=== PATIENT | male | born 1960 | race Caucasian/White ===

== ENCOUNTER 2016-07-14 16:10 | Emergency (ER) | payer BC ==
[2016-07-14 16:41] VITALS: BP 145/81
[2016-07-14] MEDS ORDERED: FLUTICASONE 50MCG/NASAL SPRAY 16GM BOTTLE. NS STA (16:59)
[2016-07-14] MEDS ORDERED: BENZONATATE 100 MG CAPSULE. PO ONE (17:00)
[2016-07-14] MEDS ORDERED: PREDNISONE 20 MG TABLET PO ONE (17:00)
[2016-07-14] MEDS ORDERED: IPRATRPIUM/ALBUTEROL 0.5/2.5MG 3 ML NEBU. NEB ONE (17:00)
--- NOTE | 2016-07-14 17:06 | PHYS DOC ---
Past Medical History Past Medical History: No Pertinent History Past Surgical History: Other Additional Past Surgical Histo: RIGHT ARM SCREWS REMOVED,LEFT LEG WITH SCREWS, LEFT THUMB WITH SCREW, Alcohol Use: Rarely Drug Use: Marijuana Adult General Chief Complaint Chief Complaint: COUGH HPI HPI Patient is a 56 year old male with no significant medical history who presents today with a productive cough with green sputum for the last 3 weeks. Patient's also complaining of chills and body aches. Patient states he tried calling his PCP who sent him to the ED for chest x-ray. Patient denies any personal history of smoking but states the smokes around him. Review of Systems Review of Systems Constitutional: see HPI Eyes: Denies change in visual acuity, redness, or eye pain [] HENT: nasal congestion Respiratory: cough Cardiovascular: No additional information not addressed in HPI [] GI: Denies abdominal pain, nausea, vomiting, bloody stools or diarrhea [] : Denies dysuria or hematuria [] Musculoskeletal: Denies back pain or joint pain [] Integument: Denies rash or skin lesions [] Neurologic: Denies headache, focal weakness or sensory changes [] Endocrine: Denies polyuria or polydipsia [] Current Medications Current Medications Current Medications Medications (Trade) Dose Ordered Sig/Lenin Start Time Stop Time Status Last Admin Dose Admin Albuterol/ Ipratropium (Duoneb) 3 ml 1X ONCE 07/14/16 17:00 07/14/16 17:03 DC 07/14/16 17:28 3 ML Benzonatate (Tessalon Perle) 200 mg 1X ONCE 07/14/16 17:00 07/14/16 17:03 DC 07/14/16 17:18 200 MG Fluticasone Propionate (Flonase) 2 spray 1X STAT 07/14/16 16:59 07/14/16 17:04 DC 07/14/16 17:18 2 SPRAY Prednisone (Prednisone) 60 mg 1X ONCE 07/14/16 17:00 07/14/16 17:03 DC 07/14/16 17:18 60 MG Allergies Allergies Allergies Coded Allergies Type Severity Reaction Last Updated Verified morphine Allergy Intermediate SICK, 07/14/16 Yes Physical Exam Physical Exam Constitutional: Well developed, well nourished, no acute distress, non-toxic appearance. [] HENT: Normocephalic, atraumatic, bilateral external ears normal, oropharynx moist, no oral exudates, nose normal. [] Eyes: PERRLA, EOMI, conjunctiva normal, no discharge. [] Neck: Normal range of motion, no tenderness, supple, no stridor. [] Cardiovascular:Heart rate regular rhythm, no murmur [] Lungs & Thorax: Diminished breath sounds to posterior lower lung bases, no wheezing. No rhonchi. Abdomen: Bowel sounds normal, soft, no tenderness, no masses, no pulsatile masses. [] Skin: Warm, dry, no erythema, no rash. [] Back: No tenderness, no CVA tenderness. [] Extremities: No tenderness, no cyanosis, no clubbing, ROM intact, no edema. [] Neurologic: Alert and oriented X 3, normal motor function, normal sensory function, no focal deficits noted. [] Psychologic: Affect normal, judgement normal, mood normal. [] Current Patient Data Vital Signs Vital Signs Date Time Temp Pulse Resp B/P Pulse Ox O2 Delivery O2 Flow Rate FiO2 07/14/16 17:29 98 Room Air 07/14/16 16:41 98.0 102 22 98.0 EKG EKG [] Radiology/Procedures Radiology/Procedures [] Course & Med Decision Making Course & Med Decision Making Pertinent Labs and Imaging studies reviewed. (See chart for details) Patient is in the ED with a cough for 3 weeks. He has no history of smoking but is exposed to secondhand smoking. I advised patient to talk to the to consider smoking cessation encouraged her if she has to smoke she has to do it outside. Chest x-ray interpreted by Dr. Newby is negative for any acute findings. Patient was actively coughing on arrival to the ED. He was given a DuoNeb treatment prednisone and Flonase and Tessalon Perles. His coughing has actually stopped. He probably has bronchitis but considering his age of 56 and the length of illness we will put him on the Zpack. We also sent him home with some cough medicine prednisone and the Flonase. He is to follow-up with his own PCP in the next 7 days. He was provided return precautions and discharged in stable condition. Dragon Disclaimer Dragon Disclaimer This electronic medical record was generated, in whole or in part, using a voice recognition dictation system. Departure Departure Impression: Primary Impression: Secondhand smoke exposure Additional Impression: Acute bronchitis Disposition: HOME, SELF-CARE Condition: STABLE Referrals: OSCAR MCCRARY MD (PCP) See your doctor in one week Patient Instructions: Acute Bronchitis Additional Instructions: You were seen for acute bronchitis. Please complete your antibiotics. Use the prescribed medicines as ordered. Encouraged your to consider not smoking cessation or smoke outside. Come back to the ED if symptoms worsen otherwise follow-up with your doctor in one week Scripts Promethazine Hcl/Codeine (Promethazine-Codeine Syrup)118 Ml Syrup5 Ml PO Q4- 6HRS #100 ML Prov:SOFI FRANKS APRN 07/14/16 Azithromycin (Zithromax)250 Mg Tablet1 Pkg PO UD #1 PKG Prov:SOFI FRANKS APRN 07/14/16 Benzonatate (Tessalon Perle)100 Mg Capsule1 Cap PO TID #30 CAP Prov:SOFI FRANKS APRN 07/14/16 Albuterol Sulfate (Proair Respiclick)90 Mcg Aer.pow.ba1 Puff IH PRN Q6HRS PRN SHORTNESS OF BREATH #1 INHALER Prov:SOFI FRANKS APRN 07/14/16 Prednisone 50 Mg Tablet1 Tab PO DAILY #4 TAB Prov:SOFI FRANKS APRN 07/14/16 Problem Qualifiers Additional Impression: Acute bronchitis Bronchitis organism: unspecified organism Qualified Code: J20.9 - Acute bronchitis, unspecified SOFI FRANKS APRN Jul 14, 2016 17:06
[2016-07-14] MEDS ORDERED: PROAIR RESPICL90 MCG IH (18:04)
[2016-07-14] MEDS ORDERED: BENZ100C PO (18:04)
[2016-07-14] MEDS ORDERED: PRED50TA PO (18:04)
[2016-07-14] MEDS ORDERED: AZIT250T PO (18:04)
[2016-07-14] MEDS ORDERED: PROM118S2 PO (18:05)
--- NOTE | 2016-07-15 07:18 | RAD ---
Indication: Cough for 2 days. Time of exam 1651 hours. FINDINGS: The heart size is normal. The lungs are clear. No pleural effusion or pneumothorax is identified. The pulmonary vascularity is normal. IMPRESSION: No acute abnormality detected.
== END 2016-07-14 18:25 | disposition home or self-care (01) ==
LOC: ER 16:10
DX: J20.9 Acute bronchitis, unspecified (principal); F17.200 Nicotine dependence, unspecified, uncomplicated; Z87.891 Personal history of nicotine dependence; Z77.22 Contact with and (suspected) exposure to environmental tobacco smoke (acute) (chronic); Z88.5 Allergy status to narcotic agent
CPT/HCPCS: 71020; 94250; 94640; 99284; J7512; J7620

== ENCOUNTER → 2017-05-19 | Day surgery (SDC) | payer OTHER ==
[~2017-05-19] MED LIST: AZIT250T PO; BENZ100C PO; IV RINGERS,LACTATED 1000ML 1,000 ML IV SCH; LIDOCAINE 1% PF 2 ML VIAL. ID PRN; LIDOCAINE 2% PF Vial for OR 5 ML VIAL. ONE; MIDAZOLAM HCL/PF 2 MG/2 ML VIAL. IV PRN; PRED50TA PO; PROAIR RESPICL90 MCG IH; PROM118S2 PO; PROPOFOL 40 ML IV ONE; TRAM50TA PO; fentaNYL PF VIAL 100 MCG/2 ML VIAL IV PRN
[2017-05-19 10:14] VITALS: BP 116/80
--- NOTE | 2017-05-19 18:08 | HP ---
ADMIT DATE: 05/19/2017 REFERRING PHYSICIAN: Chong Ross MD. HISTORY OF PRESENT ILLNESS: A 57-year-old male with past medical history significant for hypertension, history of IA, social history, colonic polyps, status post arm, ankle and thumb surgery. He is seen for interval colonoscopy with last colonoscopy approximately 6 years ago, which did reveal polyps at that time. There is no change in bowel habits with no diarrhea or constipation, no melena and/or hematochezia. Weight and appetite are stable. Family history is positive for colon cancer for both parents. He is without additional complaints. PAST MEDICAL HISTORY: Significant for hypertension, previous IA. Arm, ankle and thumb surgery. ALLERGIES: None. MEDICATIONS: Tramadol 50 mg daily. FAMILY AND SOCIAL HISTORY: He is a drinker, not a smoker. Family history is significant for colon cancer with both parents. REVIEW OF SYSTEMS: As per records. PHYSICAL EXAMINATION: GENERAL: Reveals a well-nourished, well-developed male. VITAL SIGNS: Temperature 98.4, pulse is 80, respiratory rate is 20. HEENT: Normocephalic and atraumatic. Pupils and extraocular movements are not tested. Anicteric. NECK: Supple. LUNGS: Clear. CARDIOVASCULAR: Reveals an S1, S2 without S3, S4 or appreciable murmur. ABDOMEN: Soft abdomen, normal bowel sounds, without appreciable splenomegaly. EXTREMITIES: Reveals no cyanosis, clubbing, edema. IMPRESSION AND PLAN: History of colonic polyps and family history of colon cancer. Interval colonoscopy is warranted. Risks and benefits of procedure including risk of perforation during the operation had been discussed with the patient who is willing to proceed at this time. TERRA CORADO MD DR: ZOE/meseret JOB#: [id number] / [id number]
--- NOTE | 2017-05-22 13:33 | PATHOLOGY ---
PATHOLOGY REPORT * * * * * * * * FINAL DIAGNOSIS: Colon biopsies, transverse colon polyp: - Tubular adenoma. COMMENT: There is no high grade dysplasia or evidence of malignancy. (JPM:mml; 05/22/2017) REPORT ELECTRONICALLY SIGNED BY: Florian Richardson M.D. DATE/TIME: 05/22/2017 13:32 * * * * * * * * GROSS PATHOLOGY: Received in formalin labeled "Florian Longoria transverse colon polyp," are 3 segments of estevez soft tissue measuring 0.9 x 0.7 x 0.3 cm in aggregate dimensions and ranging from 0.4 to 0.7 cm in maximum dimension. The specimen is submitted entirely in cassette A1. (TSD; 05/19/2017) INITIAL CPT CODE(S): A; 32256 Professional services performed by [facility] [place] [address] Technical services performed by [facility] at [address] [place] [address], [place] [address]. SPECIMEN(S) RECEIVED: A.Transverse colon polyp CLINICAL HISTORY: History of colon polyp PATIENT: FLORIAN LONGORIA /AGE: 802/06/1960 (Age: 57) PATIENT #: [id number] ALT CASE #: SPECIMEN COLLECTION DATE: 05/19/2017 SPECIMEN RECEIVED DATE: 05/19/2017 [facility] - [address] [place] [address] - PHONE: [phone] * * * END OF REPORT * * *
== END | disposition home or self-care (01) ==
LOC: SURG 07:52
PROVIDERS: ATTEND Internal Medicine Gastroenterology
DX: Z09 Encounter for follow-up examination after completed treatment for conditions other than malignant neoplasm (principal); Z86.010 Personal history of colon polyps; D12.3 Benign neoplasm of transverse colon; K64.0 First degree hemorrhoids; K57.30 Diverticulosis of large intestine without perforation or abscess without bleeding; M19.90 Unspecified osteoarthritis, unspecified site; Z87.39 Personal history of other diseases of the musculoskeletal system and connective tissue; Z72.89 Other problems related to lifestyle; Z72.0 Tobacco use; Z87.891 Personal history of nicotine dependence
CPT/HCPCS: 45385; 88305; J2704; J2001

== ENCOUNTER → 2018-12-07 | Outpatient (CLI) | payer BC ==
[2017-05-19 10:14] VITALS: BP 116/80
[~2018-12-07] MED LIST changes: +CONTRAST GIVEN. MC PRN; +IOHEXOL 240 MG/ML 50ML VIAL. PO ONE; +IOHEXOL 300 MG/ML 100ML VIAL. IV ONE; -IV RINGERS,LACTATED 1000ML 1,000 ML IV SCH; -LIDOCAINE 1% PF 2 ML VIAL. ID PRN; -LIDOCAINE 2% PF Vial for OR 5 ML VIAL. ONE; -MIDAZOLAM HCL/PF 2 MG/2 ML VIAL. IV PRN; -PROM118S2 PO; +PROM118S5 PO; -PROPOFOL 40 ML IV ONE; -fentaNYL PF VIAL 100 MCG/2 ML VIAL IV PRN
--- NOTE | 2018-12-07 16:33 | RAD ---
CT ABD PELV W/ORAL IV CONTRAST Indication: Rectal bleeding, low abdominal pain, diarrhea. Exposure: One or more of the following individualized dose reduction techniques were utilized for this examination: 1. Automated exposure control 2. Adjustment of the mA and/or kV according to patient size 3. Use of iterative reconstruction technique. Technique: Intravenous contrast was given. Oral contrast was given. Comparison: None FINDINGS: Lung bases are clear. No evidence of pneumoperitoneum. Tiny low-density subcentimeter lesion of the right lobe of the liver too small to characterize but would most commonly be benign in the absence of other relevant clinical history. Spleen not enlarged. Low-density lesion at the posterior spleen measures 11 mm. This measures greater than cystic density but that could be due to its small size. Pancreas unremarkable. No evidence of adrenal mass. Kidneys demonstrate symmetric enhancement. No hydronephrosis or mass. No calcified gallstone. The aorta is nonaneurysmal. No significant lymph node enlargement. Mild wall thickening of the duodenum may just be due to lack of distention or peristalsis. No obstructive distention of the small bowel. Colonic diverticulosis. There is no evidence of acute colitis. The appendix appears normal. No evidence of pneumoperitoneum or ascites urinary bladder appears grossly unremarkable. The prostate is enlarged and indents the inferior urinary bladder. Degenerative spondylosis of the spine with a right convexity scoliosis. No evidence of bone destruction. IMPRESSION: 1. Hypodense lesion in the posterior spleen, this does not measure cystic density but may be too small for accurate characterization. Could be further characterized with nonemergent ultrasound or follow-up CT. 2. Mild duodenal wall thickening, likely due to nondistention or peristalsis. 3. Prostatomegaly. 4. Diverticulosis without evidence of acute colitis. Electronically signed by: Chong Arita MD (12/07/2018 4:30 PM) [facility]
== END | disposition home or self-care (01) ==
LOC: CT 14:09
PROVIDERS: ATTEND Internal Medicine Gastroenterology
DX: K57.30 Diverticulosis of large intestine without perforation or abscess without bleeding (principal); K31.89 Other diseases of stomach and duodenum; N40.1 Benign prostatic hyperplasia with lower urinary tract symptoms; D73.89 Other diseases of spleen; M47.816 Spondylosis without myelopathy or radiculopathy, lumbar region
CPT/HCPCS: 74177; Q9966; Q9967

== ENCOUNTER → 2019-03-13 | Outpatient (CLI) | payer BC ==
[2017-05-19 10:14] VITALS: BP 116/80
[~2019-03-13] MED LIST changes: -CONTRAST GIVEN. MC PRN; -IOHEXOL 240 MG/ML 50ML VIAL. PO ONE; -IOHEXOL 300 MG/ML 100ML VIAL. IV ONE
--- NOTE | 2019-03-13 17:22 | KCIC ---
3 view study of the left ankle Clinical indications: Chronic left ankle pain. History of trauma many years ago. FINDINGS: There is deformity of the mid shaft and distal shaft of the left fibula due to old healed fractures. Surgical screw is seen within the distal tibia involving the lateral tibial plafond. No acute-appearing fracture is evident. The mortise ankle joint is deformed including the talus with loss of joint space resulting in [id number] interface of the lateral portion of the tibial plafond articulating with the dome of the talus. 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 There is a prominent exostosis anteriorly and laterally. This is difficult to say whether this represents exuberant callus formation from healed distal tibia or talus fractures or represents a large loose body. This measures 34 mm in greatest dimension. There is a prominent loose body involving the posterior tibiotalar joint compartment measuring 22 mm. Smaller loose body of the medial malleolus is seen measuring 12 mm. Smaller loose body of the distal fibular epiphysis just lateral to the talus is seen measuring 9 mm. No flattening of Boehler's angle of the calcaneus is seen. Small plantar spur of the calcaneus is evident. There is moderate dorsal spurring of the talonavicular joint compartment. There is dorsal soft tissue swelling in this area extending towards the prominent exostosis just described. No lytic process is evident. 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 Electronically signed by: Sergio Orourke MD (03/13/2019 5:19 PM) [id number]
== END | disposition home or self-care (01) ==
LOC: KCIC 16:08
PROVIDERS: ATTEND Family Medicine Sports Medicine
DX: M19.072 Primary osteoarthritis, left ankle and foot (principal); M77.32 Calcaneal spur, left foot; M24.072 Loose body in left ankle; M21.962 Unspecified acquired deformity of left lower leg; G89.29 Other chronic pain
CPT/HCPCS: 73610